=== PATIENT | male | born 1980 | race Caucasian/White ===

== ENCOUNTER 2024-07-05 14:15 | Outpatient (CLI) | payer OTHER, SELFPAY ==
--- NOTE | ~2024-07-05 | US_ITS ---
EXAMINATION: US soft tissue lower back DATE: 07/05/2024 14:28 INDICATION: Palpable abnormality at the left lower back TECHNIQUE: Multiple grayscale and Doppler ultrasound images of the region of concern at the left lowe r back were obtained. COMPARISON: None FINDINGS: 2.3 x 1.7 x 0.7 cm ovoid hyperechoic subcutaneous nodule at the region of concern with similar echote xture and internal septated architecture as the surrounding subcutaneous fat. No internal vascular fl ow or surrounding hyperemia on color Doppler. No other abnormal masses or fluid collections identifie d. IMPRESSION: 1. Nonspecific 2.3 x 1.7 x 0.7 cm ovoid subcutaneous nodule at the region of concern appears most con sistent with and statistically most likely to represent a lipoma. Reviewed, dictated and finalized at location [facility] IMPRESSION: 1. Nonspecific 2.3 x 1.7 x 0.7 cm ovoid subcutaneous nodule at the region of co ncern appears most consistent with and statistically most likely to represent a lipoma.
== END 2024-07-05 14:16 | disposition home or self-care (01) ==
LOC: MICIMG 14:16
PROVIDERS: PCP Physician Assistant Medical; Visit Provider Physician Assistant Medical
DX: R22.2 Localized swelling, mass and lump, trunk (principal)
CPT/HCPCS: 76705

== ENCOUNTER 2024-08-20 01:58 | Day surgery (SDC) | payer OTHER, SELFPAY ==
[2024-07-12 12:34] VITALS: BMI 29.7
--- NOTE | 2024-07-12 12:41 | PC.NURSE ---
Report to the Outpatient Waiting Room, entrance under the green pavilion located off [facility], at time _1pm_ on date _[id number]_. Planned Procedure Time: _2pm_.? Time changes happen often and if your time is changed the preop area will call you the afternoon before. - You and your visitor will be asked to self-screen and do not enter if you have any COVID symptoms. Please call surgeon if you need to reschedule. - A mask is optional within the hospital at this time. Ok for breakfast and a light lunch. No smoking, or chewing tobacco (or any form of nicotine). Take only the following medications with a SIP of water on the morning of surgery: ____OK meds and vitamins____ DO NOT STOP ANY OF YOUR OTHER PRESCRIPTION MEDICATIONS PRIOR TO SURGERY EXCEPT THE FOLLOWING Please no make-up, nail romansh, hairspray, perfume, deodorant, or body powder the day of surgery.? No jewelry (including any body piercings) or valuables the day of surgery, leave them at home.? Please take a shower or bath the night before, or the morning of, surgery with an antibacterial soap.? Wear comfortable, loose fitting clothing.? - Jewelry must be removed prior to entering the operating room.? Rings and piercings that are not removed may be cut off. - The hospital will not accept responsibility for valuables.? - Please leave all valuables, including medications, at home the day of surgery. OK to drive self and resume activities unless instructed otherwise by your surgeon. Follow any additional instructions given to you from your surgeon. Telephone instructions given to _Aki___and asked if any additional questions and then verbalized understanding. Patient advised to call surgeon office or pre surgery nurse liaison [phone] if any additional questions.
--- OUTSIDE RECORDS SUMMARY | 2024-07-16 01:00 | XMS_ITS | Clinical Summary ---
Author Organization [facility] Address [address] [place] [address] Care Team Providers Care Mixer Machine Feeder Name Role Phone Unavailable Primary Care Provider Unavailabl e Social History Tobacco Use Types Packs/Day Years Used Date Smoking Tobacco: Never Assessed Sex and Gender Information Value Date Recorded Sex Assigned at Not on file Legal Sex Male 6:59 PM CDT Gender Identity Not on file Sexual Orientation Not on file Last Filed Vital Signs Vital Sign Reading Time Taken Comments Blood Pressure 132/64 10/09/2012 2:45 PM CDT Pulse 78 10/09/2012 2:45 PM CDT Temperature - - Respiratory Rate - - Oxygen Saturation - - Inhaled Oxygen Concentration - - Weight 100.2 kg (221 lb) 10/09/2012 2:45 PM CDT Height - - Body Mass Index - - Plan of Treatment Health Maintenance Due Date Last Done Comments Annual Physical 1985 Hepatitis C 2000 Hepatitis B Vaccines (1 of 3 - 19+ 3-dose series) 2001 DTaP, Tdap and Td Vaccines ( 1 - Tdap) 10/10/2012 10/09/2012 COVID-19 Vaccine ( - 2023-2 5 season) 2024 Influenza Adult (#1) 2024 HPV Vaccines Aged Out No longer eligi ble based on patient's age to complete this topic Meningococcal B Vaccine Aged Out No l onger eligible based on patient's age to complete this topic Meningococcal Vaccine Aged Out No marivel susan eligible based on patient's age to complete this topic Pneumococcal Vaccine: Pediat rics (0 to 5 Years) and At-Risk Patients (6 to 64 Years) Aged Out No longer eligi ble based on patient's age to complete this topic RSV Immunizations Under 20 Months Aged Out No longer eligible based on patient's age to complete this topic
--- NOTE | 2024-07-23 14:25 | PC.NURSE ---
Report to the Outpatient Waiting Room, entrance under the green pavilion located off [facility], at 1230 on 08-06-24. Planned Procedure Time: 1330.? Time changes happen often and if your time is changed the preop area will call you the afternoon before. - You and your visitor will be asked to self-screen and do not enter if you have any COVID symptoms. Please call surgeon if you need to reschedule. - A mask is optional within the hospital at this time. Patients may have clear liquids (water, carbonated beverages, clear teas, apple juice) until 3 hours prior to surgery with a maximum of 20 ounces. - No food from midnight until time of surgery and no smoking, or chewing tobacco (or any form of nicotine). No chewing gum, candy or mints. - Infants may have breast milk until 4 hours before surgery, infant formula 6 hours prior to surgery. - Children will be allowed to drink immediately following surgery.? If applicable, please bring a bottle or sippy cup to assist with drinking. Juice, water, soda, and popsicles are readily available.? For infants on formula, please bring formula the day of surgery.? Pacifiers are allowed. Take only the following medications with a SIP of water on the morning of surgery: N/A, Local case DO NOT STOP ANY OF YOUR OTHER PRESCRIPTION MEDICATIONS PRIOR TO SURGERY EXCEPT THE FOLLOWING Hold all vitamins and supplements for 3 days per anesthesiologist. Medications to discontinue per physician: N/A, local case Please no make-up, nail khmer, hairspray, perfume, deodorant, or body powder the day of surgery.? No jewelry (including any body piercings) or valuables the day of surgery, leave them at home.? Please take a shower or bath the night before, or the morning of, surgery with an antibacterial soap.? Wear comfortable, loose fitting clothing.? Children are encouraged to wear pajamas. - Jewelry must be removed prior to entering the operating room.? Rings and piercings that are not removed may be cut off. - The hospital will not accept responsibility for valuables.? - Please leave all valuables, including medications, at home the day of surgery. If you are going home after surgery, a licensed dinkey driver must drive you home.? - NO public transportation without another adult if you receive anesthesia. - We recommend that an adult stay with you for 24 hours following discharge. - We also recommend that you do not drive, make important decision, drink alcoholic beverages, or take any drugs that were not prescribed by your health care provider for at least 24 hours after your discharge time. For Pediatric surgeries, we recommend two adults accompany the child home. Follow any additional instructions given to you from your surgeon. Telephone instructions given to Aki Hong and asked if any additional questions and then verbalized understanding. Patient advised to call surgeon office or pre surgery nurse liaison [phone] if any additional questions.
--- NOTE | 2024-07-23 14:29 | PC.NURSE ---
No changes since last interview per patient. New day of procedure instructions given to patient.
--- OUTSIDE RECORDS SUMMARY | 2024-08-06 01:58 | XMS_ITS | Clinical Summary ---
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
--- NOTE | 2024-08-10 14:17 | PC.NURSE ---
Report to the Outpatient Waiting Room, entrance under the green pavilion located off [facility], at time _1230_ on date _[phone]_. Planned Procedure Time: _130pm_.? Time changes happen often and if your time is changed the preop area will call you the afternoon before. - You and your visitor will be asked to self-screen and do not enter if you have any COVID symptoms. Please call surgeon if you need to reschedule. - A mask is optional within the hospital at this time. - No smoking, or chewing tobacco (or any form of nicotine). OK for light breakfast. Take only the following medications with a SIP of water on the morning of surgery: __Medications OK DO NOT STOP ANY OF YOUR OTHER PRESCRIPTION MEDICATIONS PRIOR TO SURGERY EXCEPT THE FOLLOWING Hold all vitamins and supplements for 3 days per anesthesiologist. Medications to discontinue per physician Date to take last dose Please no make-up, nail malagasy, hairspray, perfume, deodorant, or body powder the day of surgery.? No jewelry (including any body piercings) or valuables the day of surgery, leave them at home.? Please take a shower or bath the night before, or the morning of, surgery with an antibacterial soap.? Wear comfortable, loose fitting clothing.? - Jewelry must be removed prior to entering the operating room.? Rings and piercings that are not removed may be cut off. - The hospital will not accept responsibility for valuables.? - Please leave all valuables, including medications, at home the day of surgery. If you are going home after surgery, a licensed funeral driver must drive you home.? - NO public transportation without another adult if you receive anesthesia. Follow any additional instructions given to you from your surgeon. Telephone instructions given to _Aki___and asked if any additional questions and then verbalized understanding. Patient advised to call surgeon office or pre surgery nurse liaison [phone] if any additional questions.
--- NOTE | 2024-08-10 14:20 | PC.NURSE ---
Patient says no changes since preop interview. Says the rescheduling has just been an insurance thing.
--- OUTSIDE RECORDS SUMMARY | 2024-08-20 02:01 | XMS_ITS | Clinical Summary ---
Author Organization [facility] Address [address] [place] [address] Care Team Providers Care Larriman Helper Name Role Phone Unavailable Primary Care Provider [...] 5 Years) and At-Risk Patients (6 to 49 Years) Aged Out No longer eligi ble based on patient's age to complete this topic RSV Immunizations Under 20 Months Aged Out No longer eligible based on patient's age to complete this topic
--- NOTE | 2024-08-20 12:24 | P.HP_ITS ---
H&P: HPI History of Present Illness Date/Time: 08/20/24 12:24 Chief Complaint: Back mass x 2 (cyst and lipoma) Narrative: Mr. Hong presents to the office at the request of Courtney Harris PA-C. He has a lower left back mass and a upper right back mass. Both have been present for many years with gradual increase in size. No history of infection to either area. His PCP sent him for a ultrasound of the lower left back mass which showed Nonspecific 2.3 x 1.7 x 0.7cm ovoid subcutaneous nodule at the region of concern appears most consistent with and statistically most likely to represent a lipoma. Review of Systems Review of Systems: The remainder of the review of systems to include constitutional, HEENT, cardiovascular, respiratory, GI, , integumentary, musculoskeletal, endocrine, immunologic, hematologic, psychiatric, and neurologic are all negative except for which is mentioned above in the HPI. [facility] Past Medical History Medical History Psoriasis Encounter for wellness examination in adult Gout Periodic health assessment, general screening, adult Anemia Surgical History Surgical History H/O shoulder surgery Family History Family History Father Diabetes mellitus Social History Social History Social History: 06/28/24 patient declined SDOH Smoking packs per day: 0.05 Smoking cigarettes per day: 1.0 Years smoked: 10 Smoking pack-years: 0.50 Smoking status: Former smoker (quit 2006) Tobacco type: cigarettes Second hand tobacco smoke exposure: No Smoking end date: 07/12/09 Alcohol intake: current Drinks per week: 4 Alcohol use details: weekends Substance use: never Substance use type: does not use Lack of Transportation: No Lack of Food: Never True Current Housing: I Have Housing Concerned About Future Housing: No Difficulty Paying Gas/Electric Bills: No Difficulty Paying for Meds: No Currently Unemployed: No Education: Trade/Vocational Certificate Difficulty w/ Childcare or Family Care: No Living arrangements: with family Occupation/Education: occupation Gender identity (if verbalized by the patient): Male Sexual Orientation (if Verbalized by the Patient): Straight or Heterosexual Spiritual care concerns: No Meds Home Medications and Allergies Home Medications ?Medication ?Instructions ?Recorded ?Confirmed ?Type cetirizine 10 mg capsule (Zyrtec) 10 mg PO DAILY 05/09/19 08/20/24 History multivitamin 1 tablet PO DAILY 06/28/24 08/20/24 History Allergies Allergy/AdvReac Type Severity Reaction Status Date / Time No Known Allergies Allergy Verified 08/20/24 12:58 Exam Const: General: comfortable and no acute distress HENMT: Ears: TM's normal bilaterally Face/Nose/Sinus: Normal nares present Mouth: Yes moist mucous membranes Eyes: General: appearance normal, both eyes and all related structures Sclera: sclerae normal Pupils: Equal, round and reactive pupils present EOM: EOMs intact bilaterally Neck: Neck: supple and no JVD Resp: Effort & Inspection: normal respiratory effort Auscultation: clear to auscultation bilaterally Cardio: Rate: regular rate Rhythm: regular rhythm GI: GI Palp: Yes Soft to palpation, No Firmness to palpation present (GI), No Tenderness to palpation present (GI), No Guarding due to palpation present (GI) and No Hernia present Skin: General skin exam: normal color and no rashes or lesions noted Other: 2.0 x 1.5cm left lower back lipoma. 2.0 x 1.3cm right upper back cyst. No redness, swelling, or infection from either site. Neuro: General: gait normal Speech: normal speech Motor exam (neuro): 5/5 motor strength present throughout Sensory Exam: normal sensation Extrem: General: normal to inspection Psych: Mental Status: mental status grossly normal Affect: normal affect Assessment and Plan Assessment and plan (1) Lipoma of back: Code(s): D17.1 - Benign lipomatous neoplasm of skin and subcutaneous tissue of trunk Status: Acute Assessment and Plan: Prior to patients visit in the office, I reviewed the office note of Courtney Harris PA-C. Patient has enlarging masses on his lower left back right upper right back. I've recommended excision of both masses to be performed in the OR under local anesthesia. The surgery was explained in detail including description, risks, benefits, post-operative wound care, restrictions, recovery, and expected outcome. Questions answered and he agrees to proceed as discussed. (2) Inclusion cyst: Code(s): L72.0 - Epidermal cyst Status: Acute
[2024-08-20 12:59] VITALS: BP 155/97; PULSE 78; RESP 18; TEMP 36.8; O2SAT 98
--- NOTE | 2024-08-20 13:09 | WPDHPUPDATE1 ---
History and Physical Update Update Date/Time: 08/20/24 13:09 History and Physical has been reviewed, including an updated exam of the patient. There are NO changes in the patient's condition. Risks, benefits, and alternatives have been discussed and questions answered. Patient agrees to proceed with procedure.
[2024-08-20 13:33] VITALS: BP 150/89; PULSE 81; RESP 18; O2SAT 97
[2024-08-20] MEDS: BUPivacaine HCL 0.5% 10 ML AMP 20 ML INFILTRATE (13:47)
[2024-08-20] MEDS: LIDO 1%/EPINEPHRINE 1:100,000 50 ML VIAL 20 ML INFILTRATE (13:47)
[2024-08-20 14:15] VITALS: BP 164/88; PULSE 84; RESP 16; O2SAT 97
[2024-08-20 14:24] VITALS: BP 156/90; PULSE 76; RESP 20
--- NOTE | 2024-08-20 14:31 | W.PM.PROC2 ---
Procedure Note - Detailed Date of Procedure 08/20/24 Pre-op Diagnosis Left lower back lipoma, right upper back sebaceous cyst. Post-op Diagnosis Same Procedure Performed Excision right upper back sebaceous cyst with 4cm intermediate layered wound closure. Excision of left lower back lipoma. Surgeon Rebel Cook MD Anesthesia Local Indications Patient is a 44-year-old white male presented with enlarging masses x2 on his back. In the right upper back there was a sebaceous cyst which had not become infected but was getting large enough to cause some symptoms of soreness and potential infection. In the left lower back region there was a small subcutaneous mass which was enlarging in size as well clinically consistent with a lipoma. He presents now for excision of both of these masses for diagnostic purposes because they are neoplasms which are enlarging. Findings In the right upper back region there was a nonruptured [id number] sebaceous cyst. That incision was closed with a 4cm intermediate layered wound closure. This was sent to pathology. And the left lower back region there was a small [id number] lipomatous mass consistent grossly with a lipoma. This was sent to pathology as well. Description of Procedure After informed consent was obtained patient brought to the operating room was placed prone on operating table. The whole back was then prepped and draped usual sterile fashion. Time-out was then performed correctly identifying the patient as well as the site markings for the masses. No IV was started so no IV antibiotics were given. 1% lidocaine mixed with 0.5% Marcaine with epinephrine was injected around both of these masses for local anesthetic effect. Once he was numb around these areas I then 1st excised out the sebaceous cyst in the right upper back region. A elliptical incision encompassing the whole cyst wall was then made deeply down through the dermis of the skin with a scalpel. Electrocautery was then used to completely excise off the ellipse of tissue with the attached skin. The wall was completely excised out in the subcutaneous tissues without rupturing the wall. The cyst measured approximately [id number]. It was sent to pathology for examination. Hemostasis was achieved in the incision utilized electrocautery. It was then irrigated sterile saline solution. An intermediate layered wound closure measuring 4cm was then performed. Interrupted 2-0 Vicryl sutures were placed in the deeper subcutaneous tissues. This is followed by layer of interrupted 3-0 Vicryl sutures in the more superficial subcutaneous tissues. The skin edges were then approximated utilizing a running subcuticular 4-0 Monocryl suture. I then turned my attention to removing the subcutaneous mass in the left lower back region. A transverse incision was then made with a scalpel over the palpable mass. Dissection was carried down through the dermis of the skin electrocautery and then I dissected down through very superficial layer this at the subcutaneous tissues with electrocautery until I encountered the capsule to the multilobular small mass. Utilizing combination of cautery and sharp incision mesh involved scissors I completely excised out the subcutaneous mass from the surrounding subcutaneous tissues. The mass which was grossly consistent with lipoma measured approximately [id number]. It was sent to pathology for examination separate from the previously excised cyst. I then achieved hemostasis in wound utilized electrocautery. It was irrigated sterile saline solution. The wound was then closed utilizing multiple layers of interrupted 2-0 Vicryl sutures in subcutaneous tissues followed by layers of interrupted 3-0 Vicryl sutures in the deep dermis. The skin edges were then approximated utilizing a running subcuticular 4-0 Monocryl suture. The incision was then cleaned and then both incisions on the back were then sealed with skin glue. The patient tolerated the procedure well no complications. All sponges, needles, and instrument counts were correct at the end procedure. EBL was _15__cc. The patient was awakened and taken to recovery in stable and satisfactory condition. Implants None Estimated Blood Loss 15 Drains No Packing No Pathology Yes (Right upper back sebaceous cyst and left lower back lipoma both sent to pathology separately) Complications No immediate complications Condition Stable Disposition PACU [facility] Billing Surgery - Charge Forward: Surgery Billing
== END 2024-08-20 14:35 | disposition home or self-care (01) ==
PROVIDERS: PCP Physician Assistant Medical; Visit Provider Surgery
PROC: (CPT 21930; principal; 2024-08-20 14:00)
DX: D17.1 Benign lipomatous neoplasm of skin and subcutaneous tissue of trunk (principal); L72.11 Pilar cyst; Z87.891 Personal history of nicotine dependence
CPT/HCPCS: 21930; 11403; 12032; 88304; 88305; J2004